=== PATIENT | female | born 1990 | race American Indian/Alaskan Native ===

== ENCOUNTER 2019-12-31 15:22 | Emergency (ER) | payer SELFPAY ==
--- NOTE | 2019-12-31 15:47 | Event Note ---
ED Screening Note Date of service: 12/31/19 Time: 15:44 ED Screening Note: 29 y/o female comes in for lower back and sacral pain s/p fall. This initial assessment/diagnostic orders/clinical plan/treatment(s) is/are subject to change based on patients health status, clinical progression and re- assessment by fellow clinical providers in the ED. Further treatment and workup at subsequent clinical providers discretion. Patient/guardian urged not to elope from the ED as their condition may be serious if not clinically assessed and managed. Initial orders include:
--- NOTE | 2019-12-31 16:31 | XRay Report ---
LUMBAR SPINE 3 VIEWS INDICATION / CLINICAL INFORMATION: fell with sacral pain and lower back. COMPARISON: None available. FINDINGS: VERTEBRAE: No fracture. No significant malalignment. DISC SPACES:No significant abnormality. FACET JOINTS:No significant abnormality. ADDITIONAL FINDINGS: None. IMPRESSION: 1. No significant abnormality. Signer Name: Dwain Shepard MD Signed: 12/31/2019 4:26 PM Workstation Name: [id number]
--- NOTE | 2019-12-31 20:41 | Emergency Department Report ---
ED Back Pain/Injury HPI - General Chief Complaint: Fall Stated Complaint: FELL HIT BUTTOCK Time Seen by Provider: 12/31/19 20:36 Source: patient Limitations: No Limitations - History of Present Illness Initial Comments: 29 y/o female comes in for lower back and sacral pain s/p fall. MD Complaint: back pain, back injury Onset/Timin -: days(s) - Related Data Previous Rx's Medication Instructions Recorded Last Taken Type Ibuprofen [Motrin 600 MG tab] 600 mg PO Q8H PRN #30 tablet 12/31/19 Unknown Rx Allergies Allergy/AdvReac Type Severity Reaction Status Date / Time No Known Allergies Allergy Unverified 12/31/19 15:34 ED Review of Systems ROS: Stated complaint: FELL HIT BUTTOCK Other details as noted in HPI ED Past Medical Hx - Past Medical History Previous Medical History?: No - Surgical History Additional Surgical History: C SECT / LEFT FOOT - Medications Home Medications: Home Medications Medication Instructions Recorded Confirmed Last Taken Type Ibuprofen [Motrin 600 MG tab] 600 mg PO Q8H PRN #30 tablet 12/31/19 Unknown Rx ED Physical Exam - General Limitations: No Limitations General appearance: alert, in no apparent distress - Head Head exam: Present: atraumatic, normocephalic - Eye Eye exam: Present: normal appearance - ENT ENT exam: Present: mucous membranes moist - Extremities Exam Extremities exam: Present: normal inspection, full ROM - Back Exam Back exam: Present: muscle spasm, vertebral tenderness (sacral) - Neurological Exam Neurological exam: Present: alert, oriented X3 - Psychiatric Psychiatric exam: Present: normal affect, normal mood - Skin Skin exam: Present: warm, dry, intact, normal color. Absent: rash ED Course Vital Signs 12/31/19 15:36 Temperature 98.9 F Pulse Rate 81 Respiratory 18 Rate Blood Pressure 135/96 O2 Sat by Pulse 99 Oximetry ED Medical Decision Making - Radiology Data Radiology results: report reviewed - Medical Decision Making 29 y/o female comes in for lower back and sacral pain s/p fall. Xray is negative for any abnormalities. This does not mean you did bruise you tailbone. Take pain medication on a schedule basis for the next 3 day any than as needed. Warm epsom salt soak swill help. You can purchase a donut cushion from the pharmacy to help take the pressure off your tailbone. Follow up with your Primary Care provider. Critical care attestation.: If time is entered above; I have spent that time in minutes in the direct care of this critically ill patient, excluding procedure time. ED Disposition Clinical Impression: Sacral pain Disposition: DC- TO HOME OR SELFCARE Is pt being admited?: No Does the pt Need Aspirin: No Condition: Stable Instructions: Back Pain (ED) Additional Instructions: Xray is negative for any abnormalities. This does not mean you did bruise you tailbone. Take pain medication on a schedule basis for the next 3 day any than as needed. Warm epsom salt soak swill help. You can purchase a donut cushion from the pharmacy to help take the pressure off your tailbone. Follow up with your Primary Care provider. Prescriptions: Ibuprofen [Motrin 600 MG tab] 600 mg PO Q8H PRN #30 tablet PRN Reason: Pain Referrals: PRIMARY CARE, [Primary Care Provider] - 3-5 Days [facility] [Provider Group] - 3-5 Days
[2019-12-31 22:10] VITALS: BP 135/82
== END 2019-12-31 20:43 | disposition home or self-care (01) ==
LOC: ED 15:22
DX: M53.3 Sacrococcygeal disorders, not elsewhere classified (principal); Z79.1 Long term (current) use of non-steroidal anti-inflammatories (NSAID)
CPT/HCPCS: 72100; 99283

== ENCOUNTER 2020-02-13 18:21 | Emergency (ER) | payer SELFPAY ==
--- NOTE | 2020-02-13 18:54 | Event Note ---
ED Screening Note Date of service: 02/13/20 Time: 18:53 ED Screening Note: Patient complains of vaginal discharge and lower abdominal pain x2 days Also complains of diarrhea Denies vomiting This initial assessment/diagnostic orders/clinical plan/treatment(s) is/are subject to change based on patients health status, clinical progression and re- assessment by fellow clinical providers in the ED. Further treatment and workup at subsequent clinical providers discretion. Patient/guardian urged not to elope from the ED as their condition may be serious if not clinically assessed and managed. Initial orders include: UA Pelvic exam in ACC
[2020-02-13 18:55] VITALS: BP 148/97
[2020-02-13 19:47] LABS: Bilirubin,Urine NEG (Negative); Blood,Urine NEG (Negative); Color,Urine Yellow (Yellow); Hyaline Casts,Urine 1 /LPF; Mucus,Urine 3+ /HPF
[2020-02-13 19:51] LABS: HCG Qualitative,Urine Negative (Negative)
[2020-02-14] MEDS ORDERED: ONDANSETRON 4 MG ODT TAB PO ONE (01:25)
[2020-02-14] MEDS ORDERED: HYOSCYAMINE SUBL 0.125 MG TAB SL ONE (01:25)
[2020-02-14] MEDS ORDERED: HYOSCYAMINE SUBL 0.125 MG TAB ONE (01:34)
[2020-02-14] MEDS ORDERED: ONDANSETRON 4 MG ODT TAB ONE (01:34)
--- NOTE | 2020-02-14 02:53 | Emergency Department Report ---
ED N/V/D HPI - General Chief complaint: Abdominal Pain Stated complaint: ABD PAIN/STD TEST Time Seen by Provider: 02/13/20 18:50 Source: patient Mode of arrival: Ambulatory Limitations: No Limitations - History of Present Illness Initial comments: 29-year-old F Iranian female asthma department complaining of just over 1 day history of nausea vomiting and diarrhea associated with some vague abdominal pain that radiates through to her pelvic area. 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 She is also worried about an STD at having vaginal discharge and a vague odor and wants to be evaluated with a STD check. MD complaint: nausea, vomiting, diarrhea -: Gradual, days(s) (2) Associated Abdominal Pain: No Location: diffuse Radiation: none Quality: cramping - Related Data Previous Rx's Medication Instructions Recorded Last Taken Type Ibuprofen [Motrin 600 MG tab] 600 mg PO Q8H PRN #30 tablet 12/31/19 Unknown Rx Hyoscyamine Subl [Levsin Sl 0.125 0.125 mg SL Q6HR #20 tab 02/14/20 Unknown Rx TAB] Ondansetron [Zofran Odt] 4 mg PO Q8HR #20 tab.rapdis 02/14/20 Unknown Rx metroNIDAZOLE [Flagyl] 500 mg PO Q12HR #14 tab 02/14/20 Unknown Rx Allergies Allergy/AdvReac Type Severity Reaction Status Date / Time No Known Allergies Allergy Unverified 12/31/19 15:34 ED Review of Systems ROS: Stated complaint: ABD PAIN/STD TEST Other details as noted in HPI Comment: All other systems reviewed and negative ED Past Medical Hx - Past Medical History Previous Medical History?: No - Surgical History Past Surgical History?: Yes Additional Surgical History: C SECT / LEFT FOOT - Medications Home Medications: Home Medications Medication Instructions Recorded Confirmed Last Taken Type Ibuprofen [Motrin 600 MG tab] 600 mg PO Q8H PRN #30 tablet 12/31/19 Unknown Rx Hyoscyamine Subl [Levsin Sl 0.125 0.125 mg SL Q6HR #20 tab 11/18/20 Unknown Rx TAB] Ondansetron [Zofran Odt] 4 mg PO Q8HR #20 tab.rapdis 02/14/20 Unknown Rx metroNIDAZOLE [Flagyl] 500 mg PO Q12HR #14 tab 02/14/20 Unknown Rx ED Physical Exam - General Limitations: No Limitations General appearance: alert, in no apparent distress - Head Head exam: Present: atraumatic, normocephalic - Eye Eye exam: Present: normal appearance - ENT ENT exam: Present: mucous membranes moist - Neck Neck exam: Present: normal inspection - Respiratory Respiratory exam: Present: normal lung sounds bilaterally. Absent: respiratory distress - Cardiovascular Cardiovascular Exam: Present: regular rate, normal rhythm. Absent: systolic murmur, diastolic murmur, rubs, gallop - GI/Abdominal GI/Abdominal exam: Present: soft, tenderness (Epigastric area), normal bowel sounds - External exam: Present: normal external exam Speculum exam: Present: vaginal discharge. Absent: cervical discharge, vaginal bleeding, foreign body Bi-manual exam: Present: normal bi-manual exam - Extremities Exam Extremities exam: Present: normal inspection - Back Exam Back exam: Present: normal inspection. Absent: CVA tenderness (R), CVA tenderness (L) - Neurological Exam Neurological exam: Present: alert, oriented X3, CN II-XII intact - Psychiatric Psychiatric exam: Present: normal affect, normal mood - Skin Skin exam: Present: warm, dry, intact, normal color. Absent: rash ED Course Vital Signs 02/13/20 18:52 Temperature 98.8 F Pulse Rate 81 Respiratory 14 Rate Blood Pressure 148/97 O2 Sat by Pulse 100 Oximetry Critical care attestation.: If time is entered above; I have spent that time in minutes in the direct care of this critically ill patient, excluding procedure time. ED Disposition Clinical Impression: Bacterial vaginosis, Nausea & vomiting, Abdominal pain Disposition: DC- TO HOME OR SELFCARE Is pt being admited?: No Does the pt Need Aspirin: No Condition: Stable Instructions: Abdominal Pain (ED), Bacterial Vaginosis (ED), Bacterial Vaginosis, [id number], Nausea and Vomiting, Adult, Abdominal Pain, Adult, [id number] Prescriptions: metroNIDAZOLE [Flagyl] 500 mg PO Q12HR #14 tab Hyoscyamine Subl [Levsin Sl 0.125 TAB] 0.125 mg SL Q6HR #20 tab Ondansetron [Zofran Odt] 4 mg PO Q8HR #20 tab.eryn Referrals: PRIMARY CARE, [Primary Care Provider] - 3-5 Days Forms: STI Treatment and Prevention
== END 2020-02-14 03:00 | disposition home or self-care (01) ==
LOC: ED 18:21
DX: N76.0 Acute vaginitis (principal); B96.89 Other specified bacterial agents as the cause of diseases classified elsewhere; R11.2 Nausea with vomiting, unspecified; Z98.890 Other specified postprocedural states; Z79.1 Long term (current) use of non-steroidal anti-inflammatories (NSAID); Z79.899 Other long term (current) drug therapy
CPT/HCPCS: 81001; 81025; 87210; 87591; Q0162